=== PATIENT | female | born 1985 | race Caucasian/White ===

== ENCOUNTER 2016-10-27 17:53 | Emergency (ER) | payer BC ==
[2016-10-27 19:00] VITALS: BP 156/95
[2016-10-27] MEDS ORDERED: PRED20TA PO (19:30)
[2016-10-27] MEDS ORDERED: FAMO-63 PO (19:30)
[2016-10-27] MEDS ORDERED: TRIA15OI TP (19:30)
--- NOTE | 2016-10-27 19:30 | PHYS DOC ---
Past Medical History Past Medical History: No Pertinent History Past Surgical History: , Tonsillectomy Alcohol Use: None Drug Use: None Adult General Chief Complaint Chief Complaint: ALLERGIC REACTION HPI HPI Patient is a 31 year old female presents emergency department stating that she went to get her hair dyed on Sunday. She states that she has had an allergic reaction on the back of her neck from the dye. Patient denies any shortness of air difficulty breathing. She states that she's been using Benadryl cream on the area which seems to have helped a little bit. She also states that she's been using Aquaphor to the area which has not really helped a whole lot. She states the area just feels like there is water pressure and it. Patient denies taking any other antihistamines [id number]. She denies any shortness of air difficulty breathing. Review of Systems Review of Systems Constitutional: Denies fever or chills [] Eyes: Denies change in visual acuity, redness, or eye pain [] HENT: Denies nasal congestion or sore throat [] Respiratory: Denies cough or shortness of breath [] Cardiovascular: No additional information not addressed in HPI [] GI: Denies abdominal pain, nausea, vomiting, bloody stools or diarrhea [] : Denies dysuria or hematuria [] Musculoskeletal: Denies back pain or joint pain [] Integument: Rash to the back of the neck Neurologic: Denies headache, focal weakness or sensory changes [] Allergies Allergies Allergies Coded Allergies Type Severity Reaction Last Updated Verified No Known Drug Allergies 06/18/14 No Physical Exam Physical Exam Constitutional: Well developed, well nourished, no acute distress, non-toxic appearance. [] HENT: Normocephalic, atraumatic, bilateral external ears normal, oropharynx moist, no oral exudates, nose normal. [] Eyes: PERRLA, EOMI, conjunctiva normal, no discharge. [] Neck: Normal range of motion, no tenderness, supple, no stridor. [] Cardiovascular:Heart rate regular rhythm, no murmur [] Lungs & Thorax: Bilateral breath sounds clear to auscultation [] Skin: Warm, dry, no erythema. Patient with a red raised rash on the back of her neck. Does not appear to have any drainage or discharge noted from the site. The area does not appear to be warm or tender. Back: No tenderness Extremities: No tenderness, no cyanosis, no clubbing, ROM intact, no edema. [] Neurologic: Alert and oriented X 3, normal motor function, normal sensory function, no focal deficits noted. [] Psychologic: Affect normal, judgement normal, mood normal. [] Current Patient Data Vital Signs Vital Signs Date Time Temp Pulse Resp B/P Pulse Ox O2 Delivery O2 Flow Rate FiO2 10/27/16 19:00 98.4 100 16 98 Room Air 98.4 EKG EKG [] Radiology/Procedures Radiology/Procedures [] Course & Med Decision Making Course & Med Decision Making Pertinent Labs and Imaging studies reviewed. (See chart for details) Recommended patient to have Benadryl 25 mg orally every 6 hours to help with the itching and irritation and allergic reaction. Also will provide patient prednisone to take on a daily basis. Recommended Pepcid 20 mg twice a day. Also recommended the area to have treatment: Cream placed over the site. She agrees with discharge instructions treatment regimens and follow-up recommendations. Also recommended patient to avoid the hair dye in the future. Patient agrees with discharge instructions follow-up recommendations. Signs and symptoms to return back to emergency department as been provided. [] Dragon Disclaimer Dragon Disclaimer This electronic medical record was generated, in whole or in part, using a voice recognition dictation system. Departure Departure Impression: Primary Impression: Contact dermatitis Disposition: 01 HOME, SELF-CARE Condition: STABLE Referrals: VITOR ZHAO APRN (PCP) Patient Instructions: Contact Dermatitis, [id number] Additional Instructions: Keep the area clean and dry Clean the site with aveeno soap and apply medication as prescribed Medication as prescribed Benadryl 25 mg every 6 hours for itching and irritation. This medication will cause drowsiness do not take if you need to be alert and oriented Followup with your primary care provider in 3-5 days Return to emergency department as needed for signs and symptoms that become worse. Scripts Famotidine (Pepcid)20 Mg [id number] Mg PO BID #20 TAB Prov:ALIX ROTH NP 10/27/16 Triamcinolone Acetonide (Triamcinolone Acetonide 0.1% Oint)15 Gm Oint...g.1 Benny TP BID WOUND CARE #1 TUBE MIX WITH EUCERIN DIRECTED BY PHYSICIAN Prov:ALIX ROTH NP 10/27/16 Prednisone 20 Mg [id number] Mg PO DAILY #10 TAB Prov:ALIX ROTH NP 10/27/16 ALIX ROTH NP Oct 27, 2016 19:30
[2016-10-27] MEDS ORDERED: PREDNISONE 20 MG TABLET PO ONE (19:45)
[2016-10-27] MEDS ORDERED: FAMOTIDINE 20 MG TABLET. PO ONE (19:45)
== END 2016-10-27 19:50 | disposition home or self-care (01) ==
LOC: ER 17:53
DX: L25.9 Unspecified contact dermatitis, unspecified cause (principal); T50.905A Adverse effect of unspecified drugs, medicaments and biological substances, initial encounter; X58.XXXA Exposure to other specified factors, initial encounter; Y93.89 Activity, other specified; Y99.8 Other external cause status; Y92.89 Other specified places as the place of occurrence of the external cause
CPT/HCPCS: 99283; J7512